=== PATIENT | female | born 1975 | race Asian ===

== ENCOUNTER → 2016-05-14 | Outpatient (CLI) | payer MEDICAID | END | disposition home or self-care (01) | LOC: MERGE 10:00 → RAD 10:20 | PROVIDERS: ATTEND Nurse Practitioner Family | DX: R10.13 Epigastric pain (principal) | CPT/HCPCS: 76700 ==

== ENCOUNTER → 2016-06-10 | Outpatient (CLI) | payer MEDICAID ==
[~2016-06-10] MED LIST: SINCALIDE (KINEVAC) 5 MCG ONE
== END | disposition home or self-care (01) ==
LOC: MERGE 05-17 08:30 → PETCFH 08:45
PROVIDERS: ATTEND Nurse Practitioner Family
DX: R10.13 Epigastric pain (principal); R10.9 Unspecified abdominal pain
CPT/HCPCS: 78227; A9537; J2805